=== PATIENT | male | born 1995 ===

== ENCOUNTER 2020-07-26 14:03 | Emergency (ER) | payer SELFPAY | END 2020-07-26 16:48 | disposition left against medical advice (07) | LOC: ED 14:03 | DX: Z53.21 Procedure and treatment not carried out due to patient leaving prior to being seen by health care provider (principal) ==

== ENCOUNTER 2020-10-11 01:10 | Emergency (ER) | payer SELFPAY ==
[~2020-10-11] VITALS: Ht 175.3 cm; Wt 86.2 kg
[2020-10-11 01:25] VITALS: Ht 175.3 cm; Wt 86.2 kg
[2020-10-11 02:43] LABS: RED CELL DISTRIBUTION WIDTH 15.9 % (12.1-16.2)
[2020-10-11 02:47] LABS: microscopic required? NO
[2020-10-11 02:47] LABS: CALCIUM 8.2 mg/dL (8.5-10.1); CARBON DIOXIDE 27.8 mmol/L (21-32); CHLORIDE SERUM 107 mmol/L (98-107); CREATININE SERUM 0.7 mg/dL (0.7-1.3); GFR1 > 60 mL/min; GLUCOSE SERUM 112 mg/dL (74-106); POTASSIUM SERUM 3.4 mmol/L (3.5-5.1); SODIUM SERUM 142 mmol/L (136-145)
[2020-10-11 02:53] LABS: ALBUMIN 3.1 g/dL (3.4-5.0); ALKALINE PHOSPHATASE 194 U/L (46-116); ALT/SGPT 242 U/L (16-63); AST/SGOT 262 U/L (15-37); BILIRUBIN TOTAL 0.3 mg/dL (0.20-1.00); TOTAL PROTEIN, SERUM 6.7 g/dL (6.4-8.2)
[2020-10-11 02:53] LABS: urine erythrocyte NEGATIVE (NEGATIVE)
[2020-10-11 03:01] LABS: AMPHETAMINE QUAL UR NONE DETECTED (See below)
[2020-10-11 03:07] LABS: PLATELET COUNT 54 x10^3mcL (152-348)
[2020-10-11 04:06] LABS: MONOCYTE 10 % (0-7); SEGMENTED NEUTROPHILS 58 % (37-75); rbc morphology (normal/abnorm) NORMAL (NORMAL)
[2020-10-11 07:12] VITALS: BP 116/78
== END 2020-10-11 07:12 | disposition home or self-care (01) ==
LOC: ED 01:10 → EDBD 01:10 → ED 07:12
PROVIDERS: Emergency Medicine
DX: F10.129 Alcohol abuse with intoxication, unspecified (principal); D69.6 Thrombocytopenia, unspecified; R74.01 Elevation of levels of liver transaminase levels; Z59.0 Homelessness
CPT/HCPCS: 82962; G0480